=== PATIENT | male | born 1955 | race Caucasian/White ===

== ENCOUNTER → 2021-04-18 | Outpatient (CLI) | payer MEDICARE ==
[~2021-04-18] MED LIST: ALLP300T PO; AML5T PO; DICY20TA10 PO; DIVA250T4 PO; DNPZ10T; FLUTICASONE; GEMF600T3 PO; LISI20TA PO; LORA0.5T PO; OMEP20CA12 PO; POTA20TA15 PO; RANI300T4 PO; TRIA1TAB3 PO; WRF5T PO
--- NOTE | 2021-04-18 15:18 | Diagnostic Imaging Report ---
PROCEDURE: US Renal Bilateral. TECHNIQUE: Multiple real-time grayscale images were obtained over the kidneys in various projections bilaterally. INDICATION: Followup of the renal cyst on CT scan of 04/12/2021. FINDINGS: Right kidney measures 11.6 x 5.5 x 6.3 cm. There is a simple cyst off the lower pole measuring 4 x 4.4 x 3.7 cm. There is a nonobstructing stone in the inferior pole and superior pole. There is a 2nd simple cyst measuring 9 mm along the superior lateral aspect of the kidney. There is no hydronephrosis. The left kidney measures 10 x 5.9 x 4.4 cm. There is a simple cyst inferiorly measuring 8 x 5 mm. There is a septated cyst in the mid left kidney measuring 1 x 0.8 cm. No hydronephrosis. The bladder shows small volume of urine. The ureteral jets were not demonstrated. IMPRESSION: There are bilateral renal cysts present. There is a septation in the larger cyst on the left. This would be considered a Bosniak 2F cyst. Dictated by: Dictated on workstation # [id number]
== END ==
LOC: RAD 13:00
PROVIDERS: ATTEND Urology
DX: N28.1 Cyst of kidney, acquired (principal)
CPT/HCPCS: 76770

== ENCOUNTER → 2021-07-22 | Outpatient (CLI) | payer MEDICARE ==
--- NOTE | 2021-07-22 10:31 | Diagnostic Imaging Report ---
PROCEDURE: US Renal/Bladder. TECHNIQUE: Multiple real-time grayscale images were obtained over the kidneys in various projections bilaterally. INDICATION: Follow-up right renal cyst. COMPARISON: 04/18/2021. FINDINGS: Right: The right kidney measures 10.7 cm in length. Renal cortical thickness and echogenicity are within normal limits. A cyst is seen in the inferior pole of the right kidney measuring 4.4 x 3.3 x 2.5 cm. Previously this measured 4.4 x 4.0 x 3.7 cm. There is no evidence of calculi, solid focal mass or hydronephrosis. No perinephric fluid collections are identified. Left: The left kidney measures 9.7 cm in length. Renal cortical thickness and echogenicity are within normal limits. The previously visualized cortical cyst with thin septation is again seen measuring 0.8 x 1.0 x 0.9 cm. There is no evidence of calculi, solid focal mass or hydronephrosis. No perinephric fluid collections are identified. There is no abdominal ascites. Views of the pelvis demonstrate a mildly distended urinary bladder. Both ureteral jets are visualized. No large intraluminal filling defect or calculi are identified. IMPRESSION: 1. No acute renal abnormalities identified. 2. Stable size of the septated cyst within the mid left kidney measuring 1.0 cm in max diameter. Consider follow-up renal ultrasound in 12 months to ensure stability. 3. Interval decrease in size in the dominant cyst in the right kidney. No suspicious solid renal masses. Dictated by: Dictated on workstation # [id number]
== END ==
LOC: RAD 09:00
PROVIDERS: ATTEND Urology
DX: N28.1 Cyst of kidney, acquired (principal)
CPT/HCPCS: 76770

== ENCOUNTER 2021-09-14 19:30 | Observation (INO) | payer MEDICARE ==
[~2021-09-14] VITALS: Ht 182.8 cm; Wt 94.9 kg
[2021-09-14] VITALS (7 sets, daily range): BP systolic 139–152; BP diastolic 86–101
[2021-09-14] MEDS ORDERED: NITROGLYCERIN 0.4 MG SL TABS BTL 25'S SL PRN (20:00)
[2021-09-14] MEDS ORDERED: morphine INJ 4 MG/ML 1 ML (VIAL/SYRINGE) IV PRN (20:00)
[2021-09-14] MEDS ORDERED: PATIENT MAY USE OWN MEDS, ALL PO SCH (20:00)
--- NOTE | 2021-09-14 20:01 | Tele-ICU Progress Note ---
Subjective Date Seen by a Provider: Sep 14, 2021 Time Seen by a Provider: 19:40 Subjective/Events-last exam This virtual visit was conducted using real time audio/video. Thank you for asking us to see this patient for elev troponins/ NSTEMI. Transferred from OSH, no records in EMR PMH: Gout , HL SH: smoking history: never ROS: currently asymptomatic PE: No distress. VSS. 142/92 O2 sat 94% on RA HEENT: No obvious masses, adenopathy or JVD. Chest: clear to auscultation. CV: RRR S1 S2 No murmur or added sounds. Abd: Non-tender. Bowel sounds Y. : Unremarkable. Mccall N. CARDROOM HAND/psychiatric: Grossly intact. No obvious focal findings. Extremities: No edema. Capillary refill < 3 seconds. Skin: unremarkable. Results: none available. Available chart/ vitals / labs / images reviewed. Video assessment done using teleICU camera, rest of exam as per RN. A/P: NSTEMI Critical Care: critically ill patient. Cont. home meds as appropriate. left w list. Cardiology to see. Discussed with SUNDEEP Garces. Asked RN to reach out to eICU if any questions or conc erns later. Time spent with patient/coordination of care with other health professionals (mins): 21 Sepsis Event Evaluation Height, Weight, BMI Height: '" Weight: lbs. oz. kg; BMI Method:Stated Exam Exam Patient acknowledged, consented, and participated in this virtual visit which was conducted using real time audio/video Height & Weight Height: '" Weight: lbs. oz. kg; BMI Method:Stated General Appearance: No Apparent Distress Peripheral Pulses: 1+ Dorsalis Pedis (R), 1+ Left Dors-Pedis (L) (See free text) Assessment/Plan Assessment/Plan See free text. Critical Care: Critically Ill Patient HUSSEIN IBRAHIM MD Sep 14, 2021 20:01
[2021-09-15] VITALS (16 sets, daily range): BP systolic 124–167; BP diastolic 78–117
[2021-09-15 04:57] LABS: BASOPHILS % (AUTO) 1 % (0-10); EOSINOPHILS # (AUTO) 0.3 10^3/uL (0.0-0.3); EOSINOPHILS % (AUTO) 4 % (0-10); HEMATOCRIT 46 % (40-54); HEMOGLOBIN 15.6 g/dL (13.3-17.7); LYMPHOCYTES # (AUTO) 1.9 10^3/uL (1.0-4.0); LYMPHOCYTES % (AUTO) 23 % (12-44); MEAN CORPUSCULAR HEMOGLOBIN 31 pg (25-34); MEAN CORPUSCULAR HGB CONC 34 g/dL (32-36); MEAN CORPUSCULAR VOLUME 92 fL (80-99); MEAN PLATELET VOLUME 10.1 fL (9.0-12.2); MONOCYTES # (AUTO) 0.7 10^3/uL (0.0-1.0); MONOCYTES % (AUTO) 8 % (0-12); NEUTROPHILS # (AUTO) 5.1 10^3/uL (1.8-7.8); NEUTROPHILS % (AUTO) 64 % (42-75); PLATELET COUNT 178 10^3/uL (130-400)
[2021-09-15 05:13] LABS: POTASSIUM 3.3 MMOL/L (3.6-5.0)
[2021-09-15 05:15] LABS: CALCIUM 9.6 MG/DL (8.5-10.1)
[2021-09-15 05:19] LABS: CREATININE SERUM 1.16 MG/DL (0.60-1.30)
[2021-09-15] MEDS ORDERED: ASPIRIN 81 MG CHEW (CHILDREN'S ASA) ONE (05:23)
[2021-09-15] MEDS ORDERED: ASPIRIN 81 MG CHEW (CHILDREN'S ASA) PO ONE (05:30)
[2021-09-15] MEDS ORDERED: HEParin 1000 UNIT/ML (10ML VIAL) FOR BOLUS IV PRN (05:45)
[2021-09-15] MEDS ORDERED: HEParin DRIP 25000 UNIT/500ML 500 ML IV SCH (05:45)
[2021-09-15 05:57] LABS: PROTHROMBIN TIME PATIENT 13.9 SEC (12.2-14.7)
[2021-09-15] MEDS ORDERED: ASPIRIN E.C. 81 MG (ECOTRIN) TAB PO SCH (09:00)
--- NOTE | 2021-09-15 09:21 | Consultation-Cardiology ---
HPI-Cardiology Cardiology Consultation Date of Consultation 09/15/21 Date of Admission Time Seen by Provider: 19:40 HPI Patient is a 66 year old male with a history of hypertension, hyperlipidemia, type 2 diabetes mellitus who was admitted to via [facility] [place] ICU from [facility] emergency room for elevated troponins. Patient states that yesterday around 8:30 in the morning he was at work when he suddenly had shortness of breath, chest tightness, and diaphoresis. Patient got light headed and had to sit down. This episode lasted roughly 30 minutes. In the middle of the episode, patient decided to go the the ER. At the ER he was given nitroglycerin sublingual and aspirin 81mg. He states that this helped alleviate the chest tightness. He states he is still getting short of breath. Currently on 2L O2 nasal cannula. Patient states he has a history of anxiety with panic attacks and that when he begins to think about being short of breath he gets anxious which makes his shortness of breath worse. At [facility] ER his CXR was negative for acute findings. His BNP was within normal limits. Patient moved to the area around a year ago. 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 Patient has had a heart cath in the past, in 2017 or 2018. There was no intervention done at that time. Patient has no history of MS or CVA. He believes he has been told that he has a valvular defect, he is unsure. Home Medications & Allergies Allergies: Coded Allergies: Iodinated Contrast Media (Verified Allergy, Unknown, 07/11/07) Penicillins (Verified Allergy, Unknown, 07/11/07) Sulfa (Sulfonamide Antibiotics) (Verified Allergy, Unknown, 04/12/21) VDE-Dgzvgv-Lawoyr Hx Patient Social History Smoking Status: Never a Smoker Have you traveled recently?: No Alcohol Use?: No Immunizations Up To Date Date of Influenza Vaccine: Apr 01, 2021 Review of Systems-General Review of Systems Constitutional: diaphoresis EENTM: no symptoms reported Respiratory: dyspnea on exertion, short of breath Cardiovascular: No chest pain, No Hx of Intervention, No palpitations Psychiatric/Neurological: Anxiety Reviewed Test Results Reviewed Test Results Lab Laboratory Tests 09/14/21 20:15: Troponin I 0.084 09/15/21 05:35: Troponin I 0.081 Laboratory Tests Test 09/14/21 20:15 09/15/21 04:20 09/15/21 05:30 09/15/21 05:35 Range/Units Myoglobin 64.4 10.0-92.0 NG/ML Troponin I 0.084 H 0.081 H <0.028 NG/ML White Blood Count 8.0 4.3-11.0 10^3/uL Red Blood Count 4.99 4.30-5.52 10^6/uL Hemoglobin 15.6 13.3-17.7 g/dL Hematocrit 46 40-54 % Mean Corpuscular Volume 92 80-99 fL Mean Corpuscular Hemoglobin 31 25-34 pg Mean Corpuscular Hemoglobin Concent 34 32-36 g/dL Red Cell Distribution Width 12.8 10.0-14.5 % Platelet Count 178 130-400 10^3/uL Mean Platelet Volume 10.1 9.0-12.2 fL Immature Granulocyte % (Auto) 1 % Neutrophils (%) (Auto) 64 42-75 % Lymphocytes (%) (Auto) 23 12-44 % Monocytes (%) (Auto) 8 0-12 % Eosinophils (%) (Auto) 4 0-10 % Basophils (%) (Auto) 1 0-10 % Neutrophils # (Auto) 5.1 1.8-7.8 10^3/uL Lymphocytes # (Auto) 1.9 1.0-4.0 10^3/uL Monocytes # (Auto) 0.7 0.0-1.0 10^3/uL Eosinophils # (Auto) 0.3 0.0-0.3 10^3/uL Basophils # (Auto) 0.0 0.0-0.1 10^3/uL Immature Granulocyte # (Auto) 0.0 0.0-0.1 10^3/uL Sodium Level 140 135-145 MMOL/L Potassium Level 3.3 L 3.6-5.0 MMOL/L Chloride Level 103 98-107 MMOL/L Carbon Dioxide Level 21 21-32 MMOL/L Anion Gap 16 H 5-14 MMOL/L Blood Urea Nitrogen 22 H 7-18 MG/DL Creatinine 1.16 0.60-1.30 MG/DL Estimat Glomerular Filtration Rate 69 BUN/Creatinine Ratio 19 Glucose Level 150 H 70-105 MG/DL Calcium Level 9.6 8.5-10.1 MG/DL Triglycerides Level 215 H <150 MG/DL Cholesterol Level 124 < 200 MG/DL LDL Cholesterol Direct 61 1-129 MG/DL VLDL Cholesterol 43 H 5-40 MG/DL HDL Cholesterol 26 L 40-60 MG/DL Prothrombin Time 13.9 12.2-14.7 SEC INR Comment 1.0 0.8-1.4 Activated Partial Thromboplast Time 32 24-35 SEC Physical Exam Physical Exam Vital Signs Vital Signs - First Documented 09/14/21 09/14/21 09/14/21 19:49 20:00 22:00 Temp 36.4 Pulse 91 Resp 19 B/P (MAP) 150/96 (114) Pulse Ox 94 O2 Delivery Room Air O2 Flow Rate 2.00 Capillary Refill : Height, Weight, BMI Height: '" Weight: lbs. oz. kg; 28.39 BMI Method:Stated General Appearance: WD/WN, Anxious HEENT: PERRL/EOMI Neck: Normal Inspection, Supple Respiratory: Lungs Clear, No Accessory Muscle Use, Decreased Breath Sounds Cardiovascular: Regular Rate, Rhythm, No JVD, No Murmur, Normal Peripheral Pulses Gastrointestinal: Non Tender, Soft Rectal: Deferred Extremity: Normal Capillary Refill, Non Tender, No Calf Tenderness, No Pedal Edema Neurologic/Psychiatric: Alert, Oriented x3 Skin: Normal Color, Warm/Dry Comments ECHOCARDIOGRAM (09/15/2021): 1. This is a technically difficult study due to poor endocardial definition. 2. Left ventricle: The cavity size is normal. There is mild concentric hypertrophy. Systolic function is normal. The estimated ejection fraction is 55- 60%. Regional wall motion abnormalities cannot be excluded due to poor endocardial definition. Doppler parameters are consistent with abnormal left ventricular relaxation (grade 1 diastolic dysfunction). 3. Pulmonary arteries: The pulmonary artery pressure cannot be estimated on this study due to inadequate tricuspid regurgitant envelope. A/P-Cardiology Admission Diagnosis (1) Troponin level elevated Status: Acute Assessment & Plan: Ordered an Echocardiogram Given patient's symptoms, negative CXR, negative BNP, comorbidities, and elevated troponin will plan on a heart cath today to rule out/in MS. Results from previous EKG's, Echo's, and heart caths are unknown at this time, will attempt to contact patient's previous curtain supervisor. (2) Mixed hyperlipidemia Status: Chronic Assessment & Plan: Continue on home medications. (3) Primary hypertension Status: Chronic Assessment & Plan: Patient continued on home medications. Appears stable now. Continue to monitor. (4) Type 2 diabetes mellitus with complication Status: Chronic Assessment & Plan: Patient continued on home medication regimen, continue to monitor blood glucose, managed by medical team. Assessment/Plan The patient was seen and interviewed and examined by myself. 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 He had a pressure sensation in the center left side of his chest. He also felt somewhat lightheaded. He tried standing up and taking some deep breaths but this did not really help with his symptoms. Then he felt like he started to have a panic attack and his symptoms got worse. He became concerned and went to an outside emergency room. During his evaluation he had high-sensitivity troponin levels drawn which were elevated and he was sent to our hospital for further evaluation. While he was in the intensive care unit, he was treated with aspirin and sublingual nitroglycerin which seemed to relieve his symptoms somewhat but then he had low blood pressure and again had another panic attack. When I saw him this morning, he still felt like he had a slight knot in the left side of his chest. His breathing has improved. Troponin levels were also obtained here which were elevated. A cardiology consultation has been requested due to the elevated troponin levels. He states he had a cardiac catheterization in [place] in 2017 and was placed on metoprolol at that time but was not told about any significant blockage and he did not require any revascularization. He has occasional paroxysmal nocturnal dyspnea but denies orthopnea. He uses a CPAP at home. He denies syncope or lower extremity edema. S: General: Alert. No acute distress. Well nourished and appears stated age. Eye: Extraocular movements are intact. Conjunctivae are clear. There are no xanthelasma. HENT: Normocephalic. Atraumatic. Carotid pulsations 2/2 without bruits. Neck: Jugular venous pressure does not appear elevated. No thyromegaly appreciated. Respiratory: Lungs are clear to auscultation. Respirations are non-labored. Breath sounds are equal. Symmetrical chest wall expansion. Cardiovascular: Normal rate. Regular rhythm. No murmur. No gallop. Point of max imal impulse is not appear displaced. Good pulses equal in all extremities. No edema. Gastrointestinal: Soft. Normal bowel sounds. Skin: Skin turgor is normal. There is no pallor. Musculoskeletal: No kyphosis or scoliosis appreciated. Neurologic: Alert and oriented to person, place, time. Cranial nerves 3-12 appear grossly intact. The patient has good motor tone strength in the upper and lower extremities bilaterally. Psychiatric: Cooperative. He appears anxious. IMPRESSION: 1. Elevated troponin level. Unclear whether or not this could be consistent with a non-ST elevation myocardial infarction. His troponin levels in our insti tution were flat. His echocardiogram shows normal ejection fraction. There are no ischemic changes or signs of an old myocardial infarction on his electrocardiogram. However, despite being on intravenous heparin, he still has chest discomfort. In light of these findings, I recommend further evaluation with a cardiac catheterization. I have explained the benefits and risks of the procedure to the patient and he is in agreement to proceed. 2. Primary hypertension. Continue outpatient antihypertensive medication. 3. Mixed hyperlipidemia. Continue statin medication. 4. Type 2 diabetes mellitus with complications (cardiac). This is being managed by the hospitalist. Certain portions of this document may have been dictated utilizing voice recognition technology. Inherent to this technology, typographical and grammatical errors may exist. As much as I am diligent to identify and correct these mistakes, some errors may remain in the document. Supervisory-Addendum Brief Verification & Attestation Participated in pt care: history, MDM, physical Personally performed: exam, history, MDM Care discussed with: Medical Student Procedures: n/a Results interpretation: Verified all documentation Verification and Attestation of Medical Student E/M Service A medical student performed and documented this service in my presence. I reviewed and verified all information documented by the medical student and made modifications to such information, when appropriate. I personally performed the physical exam and medical decision making. Daniel Carlson JR, MD, Sep 15, 2021,11:31 FRANKO HENRY Sep 15, 2021 09:21 DANIEL CARLSON JR, MD Sep 15, 2021 10:22
[2021-09-15] MEDS ORDERED: NS IV 1000 ML 1,000 ML IV ONE (11:15)
[2021-09-15] MEDS ORDERED: CATHETER FLUSH 10 ML SYR IV PRN (11:15)
[2021-09-15] MEDS ORDERED: LIDOCAINE 1% INJ 50 ML (XYLOCAINE) VIAL ONE (11:30)
[2021-09-15] MEDS ORDERED: HEParin (CATH LAB) 2,000 ML IV ONE (11:31)
[2021-09-15] MEDS ORDERED: NS IV 1000 ML 1,000 ML ONE (11:31)
[2021-09-15] MEDS ORDERED: diphenhydrAMINE 50 MG/ML INJ (BENADRYL) ONE (11:35)
[2021-09-15] MEDS ORDERED: NITRO DRIP 25000 MCG/D5W 250 ML IV ONE (11:35)
[2021-09-15] MEDS ORDERED: MIDAZOLAM 5 MG/5 ML (VERSED) VIAL ONE (11:35)
[2021-09-15] MEDS ORDERED: HEParin 1000 UNIT/ML (10ML VIAL) FOR BOLUS ONE (11:35)
[2021-09-15] MEDS ORDERED: VERAPAMIL 5 MG/2 ML (CALAN) VIAL IV ONE (11:35)
[2021-09-15] MEDS ORDERED: fentaNYL INJ 100 MCG/2 ML AMP ONE (11:35)
[2021-09-15] MEDS ORDERED: FAMOTIDINE 20MG/2ML IV (PEPCID) ONE (11:35)
[2021-09-15] MEDS ORDERED: methylPREDNISolone 125 MG (Solu-MEDROL) VIAL ONE (11:39)
--- NOTE | 2021-09-15 12:10 | Pre-Op Note & Conscious Sedat ---
Pre-Operative Progress Note H&P Reviewed The H&P was reviewed, patient examined and no changes noted. Date H&P Reviewed: Sep 15, 2021 Time H&P Reviewed: 12:08 Pre-Op Diagnosis: Possible NSTEMI Conscious Sedation Pre-Proced ASA Score 2 For ASA 3 and 4: Consider anesthesia and medical clearance. Also, for patients with a history of failed moderate sedation consider anesthesia. Airway Lungs Heart ASA score ASA 1: a normal healthy patient ASA 2: a patient with a mild systemic disease (mid diabetes, controlled hypertension, obesity ASA 3: a patient with a severe systemic disease that limits activity (angina, COPD, prior Myocardial infarction) ASA 4: a patient with an incapacitating disease that is a constant threat to life (CHF, renal failure) ASA 5: a moribund patient not expected to survive 24 hrs. (ruptured aneurysm) ASA 6: a declared brain- patient whose organs are being harvested. For emergent operations, add the letter E after the classification Mallampati Classification Grade 2 Sedation Plan Analgesia, Amnesia, Plan communicated to team members, Discussed options with patient/fam, Discussed risks with patient/fam The patient is an appropriate candidate to undergo the planned procedure, sedation, and anesthesia. The patient immediately re-assessed prior to indication. GLENIS KAMARA JR, MD Sep 15, 2021 12:10
[2021-09-15] MEDS ORDERED: PANTOPRAZOLE 40 MG (PROTONIX) TAB PO NR (12:45)
[2021-09-15] MEDS ORDERED: NS IV 1000 ML 1,000 ML IV SCH (12:45)
[2021-09-15] MEDS ORDERED: PATIENT MAY USE OWN MEDS, ALL PO SCH (12:45)
[2021-09-15] MEDS ORDERED: ALLO100T PO (15:06)
[2021-09-15] MEDS ORDERED: PANT40TA52 PO (15:06)
[2021-09-15] MEDS ORDERED: AMLO-251 PO (15:06)
[2021-09-15] MEDS ORDERED: GLIP5TAB13 PO (15:06)
[2021-09-15] MEDS ORDERED: HYDR25TA4 PO (15:06)
[2021-09-15] MEDS ORDERED: ATOR40TA70 PO (15:06)
[2021-09-15] MEDS ORDERED: ACET-2267 PO (15:06)
[2021-09-15] MEDS ORDERED: LORA10TA7 PO (15:06)
[2021-09-15] MEDS ORDERED: LOSA50TA63 PO (15:06)
[2021-09-15] MEDS ORDERED: MTP25TSR PO (15:06)
[2021-09-15] MEDS ORDERED: ASPI-1238 PO (15:06)
[2021-09-15] MEDS ORDERED: GABA300C PO (15:06)
--- NOTE | 2021-09-15 15:29 | Short Stay Summary ---
HPI History of Present Illness: 66 yo M that presented to outside ER with chest pain. Patient states that he was checking a car tire when he became more short of breath and had a chest tightening . States that it had happened several times to him but this time the pain was worse. States that he had a previous cath in 2013 in [place] that was normal. Patient states that when he came into the ER the nitro and ASA helped the pain. He has a significant family history of SC as his father and grandfather both had fatal SC. This AM he states that the pain has resolved but he still has tightness in his chest. He is DM and controlled on Oral medications. Source: patient Exam Limitations: no limitations Date seen by provider: Sep 15, 2021 Time Seen by Provider: 10:15 Attending Physician Allie Perry MD PCP Shayne Escobar DO Consult Date of Admission Sep 14, 2021 at 19:30 Home Medications Home Medications Reviewed patient Home Medication Reconciliation performed by pharmacy medication reconciliations hazardous materials waste technician and/or nursing. Patients Allergies have been reviewed. Allergies Coded Allergies: Iodinated Contrast Media (Verified Allergy, Unknown, 07/11/07) Penicillins (Verified Allergy, Unknown, 07/11/07) Sulfa (Sulfonamide Antibiotics) (Verified Allergy, Unknown, 04/12/21) DAK-Caabyz-Alxjmd Hx Patient Social History Smoking Status: Never a Smoker Alcohol Use?: No Have you traveled recently?: No Immunizations Up To Date Influenza Vaccine Up-to-Date: Yes; Up-to-Date First/Initial COVID19 Vaccinat: OCTOBER 2020 Second COVID19 Vaccination Edmundo: DECEMBER 2020 Third COVID19 Vaccination Date: MAR 2021 Past Medical History NIDDM HTN HLD Family Medical History Significant Family History: Heart Disease Review of Systems (CHC) Constitutional: No chills, No fever, No malaise; weakness EENTM: no symptoms reported; No mouth pain, No nose congestion, No nose pain Respiratory: No cough; dyspnea on exertion; No orthopnea; short of breath Cardiovascular: chest pain; No edema, No palpitations Gastrointestinal: no symptoms reported; No abdominal pain, No constipation, No diarrhea, No nausea, No vomiting Genitourinary: no symptoms reported; No dysuria, No frequency, No hematuria Musculoskeletal: no symptoms reported; No back pain, No joint pain, No muscle pain Skin: no symptoms reported; No lesions, No rash Psychiatric/Neurological: Anxiety Reviewed Test Results Reviewed Test Results Lab Laboratory Tests Test 09/14/21 20:15 09/15/21 04:20 09/15/21 05:30 09/15/21 05:35 Range/Units Myoglobin 64.4 10.0-92.0 NG/ML Troponin I 0.084 H 0.081 H <0.028 NG/ML White Blood Count 8.0 4.3-11.0 10^3/uL Red Blood Count 4.99 4.30-5.52 10^6/uL Hemoglobin 15.6 13.3-17.7 g/dL Hematocrit 46 40-54 % Mean Corpuscular Volume 92 80-99 fL Mean Corpuscular Hemoglobin 31 25-34 pg Mean Corpuscular Hemoglobin Concent 34 32-36 g/dL Red Cell Distribution Width 12.8 10.0-14.5 % Platelet Count 178 130-400 10^3/uL Mean Platelet Volume 10.1 9.0-12.2 fL Immature Granulocyte % (Auto) 1 % Neutrophils (%) (Auto) 64 42-75 % Lymphocytes (%) (Auto) 23 12-44 % Monocytes (%) (Auto) 8 0-12 % Eosinophils (%) (Auto) 4 0-10 % Basophils (%) (Auto) 1 0-10 % Neutrophils # (Auto) 5.1 1.8-7.8 10^3/uL Lymphocytes # (Auto) 1.9 1.0-4.0 10^3/uL Monocytes # (Auto) 0.7 0.0-1.0 10^3/uL Eosinophils # (Auto) 0.3 0.0-0.3 10^3/uL Basophils # (Auto) 0.0 0.0-0.1 10^3/uL Immature Granulocyte # (Auto) 0.0 0.0-0.1 10^3/uL Sodium Level 140 135-145 MMOL/L Potassium Level 3.3 L 3.6-5.0 MMOL/L Chloride Level 103 98-107 MMOL/L Carbon Dioxide Level 21 21-32 MMOL/L Anion Gap 16 H 5-14 MMOL/L Blood Urea Nitrogen 22 H 7-18 MG/DL Creatinine 1.16 0.60-1.30 MG/DL Estimat Glomerular Filtration Rate 69 BUN/Creatinine Ratio 19 Glucose Level 150 H 70-105 MG/DL Calcium Level 9.6 8.5-10.1 MG/DL Triglycerides Level 215 H <150 MG/DL Cholesterol Level 124 < 200 MG/DL LDL Cholesterol Direct 61 1-129 MG/DL VLDL Cholesterol 43 H 5-40 MG/DL HDL Cholesterol 26 L 40-60 MG/DL Prothrombin Time 13.9 12.2-14.7 SEC INR Comment 1.0 0.8-1.4 Activated Partial Thromboplast Time 32 24-35 SEC Test 09/15/21 09:39 09/15/21 11:39 Range/Units Activated Partial Thromboplast Time 59 H 46 H 24-35 SEC D-Dimer 4.97 H 0.00-0.49 UG/ML Physical Exam-(CHC) Physical Exam Vital Signs VS - Last 72 Hours, by Label 09/14/21 09/14/21 09/14/21 09/14/21 19:49 20:00 20:15 20:30 Temp 36.4 Pulse 91 75 70 74 Resp 19 20 23 B/P (MAP) 150/96 (114) 152/88 (109) 144/101 (115) Pulse Ox 94 92 91 O2 Delivery Room Air Room Air Room Air 09/14/21 09/14/21 09/14/21 09/14/21 20:45 20:57 21:00 22:00 Pulse 71 67 67 Resp 18 24 24 B/P (MAP) 141/86 (104) 139/86 (103) 140/96 (111) Pulse Ox 90 94 92 90 O2 Delivery Room Air Room Air Room Air Nasal Cannula O2 Flow Rate 2.00 09/14/21 09/15/21 09/15/21 09/15/21 23:00 00:00 00:00 01:00 Pulse 65 68 61 Resp 20 27 14 B/P (MAP) 139/87 (104) 144/90 (108) 127/78 (94) Pulse Ox 92 94 93 O2 Delivery Nasal Cannula Nasal Cannula Nasal Cannula Nasal Cannula O2 Flow Rate 2.00 2.00 2.00 2.00 09/15/21 09/15/21 09/15/21 09/15/21 01:00 02:00 03:00 03:00 Pulse 61 58 63 Resp 18 21 B/P (MAP) 124/80 (95) 140/90 (107) Pulse Ox 93 93 O2 Delivery Nasal Cannula Nasal Cannula Nasal Cannula O2 Flow Rate 2.00 2.00 2.00 09/15/21 09/15/21 09/15/21 09/15/21 04:00 05:00 06:00 07:00 Pulse 63 76 69 56 Resp 21 19 25 B/P (MAP) 140/86 (104) 149/98 (115) 141/92 (108) Pulse Ox 91 94 94 O2 Delivery Nasal Cannula Nasal Cannula Nasal Cannula O2 Flow Rate 2.00 2.00 2.00 09/15/21 09/15/21 09/15/21 09/15/21 07:00 07:11 07:58 08:00 Temp 35.8 Pulse 60 71 Resp 19 51 B/P (MAP) 146/94 (111) 151/94 (113) Pulse Ox 96 97 O2 Delivery Nasal Cannula Nasal Cannula Nasal Cannula O2 Flow Rate 2.00 6.00 2.00 09/15/21 09/15/21 09/15/21 09/15/21 09:00 10:00 11:00 11:11 Pulse 66 59 63 Resp 43 19 14 B/P (MAP) 163/117 (132) 141/99 (113) 141/96 (111) Pulse Ox 95 95 97 O2 Delivery Nasal Cannula Nasal Cannula Nasal Cannula Nasal Cannula O2 Flow Rate 2.00 2.00 2.00 6.00 09/15/21 09/15/21 09/15/21 09/15/21 11:30 11:57 12:00 13:00 Temp 35.4 Pulse 64 49 Resp 29 25 22 B/P (MAP) 167/100 (122) 136/81 (99) Pulse Ox 94 95 94 O2 Delivery Nasal Cannula Nasal Cannula Nasal Cannula O2 Flow Rate 2.00 2.00 2.00 09/15/21 09/15/21 09/15/21 13:00 13:45 14:00 Pulse 54 54 Resp 25 B/P (MAP) 140/80 (100) Pulse Ox 95 O2 Delivery Nasal Cannula Nasal Cannula O2 Flow Rate 2.00 2.00 Capillary Refill : Less Than 3 Seconds General Appearance: WD/WN, no apparent distress, other (anxious appearing) HEENT: PERRL/EOMI Neck: non-tender, full range of motion, supple Respiratory: chest non-tender, lungs clear, normal breath sounds, no respiratory distress, no accessory muscle use Cardiovascular: normal peripheral pulses, regular rate, rhythm, no edema, no murmur Gastrointestinal: normal bowel sounds, non tender, soft, no organomegaly Back: no CVA tenderness Extremities: normal range of motion, non-tender, normal inspection, no pedal edema, no calf tenderness, normal capillary refill Neurologic/Psychiatric: electrical research engineer II-XII nml as tested, no motor/sensory deficits, alert, normal mood/affect, oriented x 3 Skin: normal color, warm/dry Lymphatic: no adenopathy Short Stay Diagnosis Discharge Diagnosis-Short Stay Admission Diagnosis See problem list Final Discharge Diagnosis See problem list Conclusion Plan See below Problem List (1) Troponin level elevated Assessment & Plan: Ordered an Echocardiogram Given patient's symptoms, negative CXR, negative BNP, comorbidities, and elevated troponin will plan on a heart cath today to rule out/in SC. Results from previous EKG's, Echo's, and heart caths are unknown at this time, will attempt to contact patient's previous crester. Status: Acute (2) Mixed hyperlipidemia Assessment & Plan: Continue on home medications. Status: Chronic (3) Primary hypertension Assessment & Plan: Patient continued on home medications. Appears stable now. Continue to monitor. Status: Chronic (4) Type 2 diabetes mellitus with complication Assessment & Plan: Patient continued on home medication regimen, continue to monitor blood glucose, managed by medical team. Status: Chronic Assessment/Plan Assessment/Plan Admission Status: Observation (1) Atypical chest pain Status: Acute Assessment & Plan: - Pain resolved this AM but still having tightness, Cardiol ogy consult, appreciate recommendations (2) Troponin level elevated Status: Acute Assessment & Plan: - Patient was taken to phlebotomist medical lab assistant and had a clean cath with normal EF (3) Primary hypertension Status: Chronic Assessment & Plan: - Continue home meds (4) Mixed hyperlipidemia Status: Chronic Assessment & Plan: - Continue high intensity statin (5) Type 2 diabetes mellitus with complication Status: Chronic Assessment & Plan: - Continue home meds ALLIE PERRY MD Sep 15, 2021 15:29
--- NOTE | 2021-09-15 15:35 | Discharge Summary ---
Discharge [facility] Reconcile Patient Problems Problems Reviewed?: Yes Discharge Medications New, Converted or Re-Newed RX: Transmitted to Pharmacy Continued Medications: Acetaminophen (Tylenol Extra Strength) 500 Mg Tablet 1000 MG PO Q8H PRN for PAIN-MILD (1-4), TAB Allopurinol (Allopurinol) 100 Mg Tablet 100 MG PO DAILY, TAB Amlodipine Besylate (Amlodipine Besylate) 10 Mg Tablet 10 MG PO DAILY, TAB Aspirin (Aspirin EC) 81 Mg Tablet.dr 81 MG PO HS, TAB Atorvastatin Calcium (Atorvastatin Calcium) 40 Mg Tablet 40 MG PO HS, TAB Gabapentin (Neurontin) 300 Mg Capsule 300 MG PO HS, CAP Glipizide (Glipizide) 5 Mg Tablet 5 MG PO BIDAC, TAB Hydrochlorothiazide (Hydrochlorothiazide) 25 Mg Tablet 25 MG PO DAILY, TAB Loratadine (Loratadine) 10 Mg Tablet 10 MG PO DAILY PRN for ALLERGY SYMPTOMS, TAB Losartan Potassium (Losartan Potassium) 50 Mg Tablet 50 MG PO 1800 AFTER MEAL, TAB Metoprolol Succinate (Metoprolol Succinate) 25 Mg Tab.er.24h 25 MG PO DAILY, TAB Pantoprazole Sodium (Pantoprazole Sodium) 40 Mg Tablet.dr 40 MG PO DAILY, TAB Patient Instructions Goal/Follow Up Appt: F.u with PCP 1-2 weeks Activity & Diet Discharge Diet: Cardiac Diet Activity as Tolerated: Yes ALLIE ROMAN MD Sep 15, 2021 15:35
[2021-09-15] MEDS ORDERED: HYDR-3584 PO (16:17)
--- NOTE | 2021-09-15 19:00 | Cardiac Cath Report ---
CARDIAC CATHETERIZATION DATE OF PROCEDURE: 09/15/2021 INDICATION: Abnormal troponin level. HISTORY: The patient is a 66 year old male with no known history of coronary artery disease who presented to the hospital with chest pain and dyspnea. He was found to have an elevated troponin level. Despite receiving aspirin, intravenous heparin, and nitrates, he has continued to have persistent chest discomfort. As such, he is now referred for further evaluation with a cardiac catheterization. PROCEDURES PERFORMED: 1. Left heart catheterization with hemodynamic measurements. 2. Diagnostic upper sioux coronary angiography. PROCEDURE DESCRIPTION: After informed consent and in the fasting state, left heart catheterization was performed through the right radial artery utilizing a 6 Wallisian system by percutaneous approach. Standard 5 Wallisian Mitul catheters were utilized for the diagnostic portion of the procedure. All catheters were exchanged over a guidewire. RESULTS: HEMODYNAMICS: The aortic pressure was 130/75 mmHg. The left ventricular pressure was 127/0 mmHg with a left ventricular end-diastolic pressure of 9 mmHg. There was no significant pressure gradient upon pullback across aortic valve. CORONARY ANGIOGRAPHY: Left main coronary artery: Free of significant disease. Left anterior descending coronary artery: Free of significant disease. Left circumflex coronary artery: Free of significant disease. Right coronary artery: Dominant and free of significant disease. IMPRESSION: 1. Normal left heart pressures. 2. Angiographically normal-appearing coronary arteries in a right dominant system. 3. The patient is known to have normal left ventricular systolic function with an estimated ejection fraction of 55-60% by echocardiogram obtained earlier today. 4. The patient most likely had noncardiac elevation of the troponin level of unclear etiology, possibly due to chronic kidney disease. 5. Alternative etiologies of noncardiac chest pain should be evaluated. Certain portions of this document may have been dictated utilizing voice recognition technology. Inherent to this technology, typographical and grammatical errors may exist. As much as I am diligent to identify and correct these mistakes, some errors may remain in the document. GLENIS KAMARA JR, MD Sep 15, 2021 19:00
[2021-09-16] MEDS ORDERED: PANTOPRAZOLE 40 MG (PROTONIX) TAB PO SCH (09:00)
== END 2021-09-15 17:26 | disposition home or self-care (01) ==
LOC: ICU 19:30
PROVIDERS: ADMIT Family Medicine; ATTEND Family Medicine
DX: R79.89 Other specified abnormal findings of blood chemistry (principal); R07.89 Other chest pain; E11.8 Type 2 diabetes mellitus with unspecified complications; I10 Essential (primary) hypertension; E78.2 Mixed hyperlipidemia; Z79.84 Long term (current) use of oral hypoglycemic drugs; Z99.81 Dependence on supplemental oxygen
CPT/HCPCS: 80048; 80061; 83874; 84484 ×2; 85025; 85379; 85610; 85730; 87081; 93005 ×2; 93306; 93458; C1894; G0378; G0379; 36415

== ENCOUNTER → 2021-10-31 | Outpatient (CLI) | payer MEDICARE ==
[~2021-10-31] MED LIST changes: +ACET-2267 PO; +ALLO100T PO; +AMLO-251 PO; +ASPI-1238 PO; +ATOR40TA70 PO; +GABA300C PO; +GLIP5TAB13 PO; +HYDR-3584 PO; +HYDR25TA4 PO; +LORA10TA7 PO; +LOSA50TA63 PO; +MTP25TSR PO; +PANT40TA52 PO; +RT-ALBUTEROL SULF 2.5 MG/3 ML PRE-MIX VIAL INH ONE
== END ==
LOC: RT 13:00
PROVIDERS: ATTEND Nurse Practitioner Family
DX: R06.02 Shortness of breath (principal)
CPT/HCPCS: 94060; 94726; 94729

== ENCOUNTER 2023-04-13 05:28 | Outpatient (CLI) | payer MEDICARE ==
[~2023-04-13] VITALS: Ht 182.9 cm; Wt 96.8 kg
[~2023-04-13 05:28] MED LIST changes: -RT-ALBUTEROL SULF 2.5 MG/3 ML PRE-MIX VIAL INH ONE
[2023-04-13] MEDS ORDERED: BUDE10.2 IH (10:27)
[2023-04-13] MEDS ORDERED: METO50TA7 PO (10:27)
[2023-04-13] MEDS ORDERED: LOSA100T58 PO (10:27)
[2023-04-13] MEDS ORDERED: TIOT18CA2 IH (10:27)
[2023-04-13] MEDS ORDERED: SEMA0.258 SQ (10:27)
[2023-04-13] MEDS ORDERED: CLIN150C20 PO (10:36)
== END 2023-04-13 10:37 | disposition home or self-care (01) ==
LOC: PREOP 05:28
PROVIDERS: ATTEND Specialist
DX: Z01.818 Encounter for other preprocedural examination (principal)

== ENCOUNTER 2023-04-20 05:57 | Day surgery (SDC) | payer MEDICARE ==
[~2023-04-20] VITALS: Ht 182.9 cm; Wt 96.8 kg
[~2023-04-20 05:57] MED LIST changes: +BUDE10.2 IH; +CLIN150C20 PO; +LOSA100T58 PO; +METO50TA7 PO; +SEMA0.258 SQ; +TIOT18CA2 IH
[2023-04-20] MEDS ORDERED: MOXIFLOXACIN OPHTH SOLN 5 MG/ML 0.5 ML SYRINGE OP ONE (06:15)
[2023-04-20] MEDS ORDERED: POVIDONE IODINE OPHTH SOLN 5% 30 ML OP ONE (06:15)
[2023-04-20] MEDS ORDERED: TIMOLOL 0.5% (CATARACTS) 0.3 ML BTL OU PRN (06:15)
[2023-04-20] MEDS ORDERED: LIDOCAINE PF 1% 2 ML VIAL IR PRN (06:15)
[2023-04-20] MEDS: TETRACAINE 0.5% OPHTH SOLN 4 ML BTL (SINGLE DOSE ONLY) OU PRN ×4 (06:19→06:31)
[2023-04-20 06:20] VITALS: BP 123/83
[2023-04-20] MEDS: PHENYLEPHRINE 10% OPHTH SOLN 5 ML BTL OU SCH ×3 (06:24→06:32)
[2023-04-20] MEDS: TROPICAMIDE 1% OPH SOLN (MYDRIACYL) 15 ML BTL OP SCH ×3 (06:24→06:32)
[2023-04-20] MEDS ORDERED: MIDAZOLAM INJ 2 MG/2 ML VIAL ONE (07:14)
--- NOTE | 2023-04-20 07:28 | Ophthalmologist Pre-Op Note ---
Pre-Operative Progress Note H&P Reviewed The H&P was reviewed, patient examined and no changes noted. Date H&P Reviewed: Apr 20, 2023 Time H&P Reviewed: 07:28 Pre-Op Dx Cataract, Right Eye ABEBE SIN MD Apr 20, 2023 07:28
--- NOTE | 2023-04-20 07:47 | Ophthalmology Operative Report ---
Cataract removal/placement IOL PREOPERATIVE DIAGNOSIS: Cataract Right Eye POSTOPERATIVE DIAGNOSIS: Cataract Right Eye PROCEDURE: Cataract removal and placement of posterior chamber implant, right eye SURGEON: Moose Sin ANESTHESIA: Topical with sedation COMPLICATIONS: None ESTIMATED BLOOD LOSS: Minimal DESCRIPTION OF PROCEDURE: After proper informed consent was obtained, the patient, a 68 male, was taken to the Operating Room and the right eye was anesthetized with tetracaine. The right eye was then prepped and draped in the usual manner. A wire lid speculum was placed. A paracentesis was made at the left hand position. Preservative free lidocaine was injected into the anterior chamber followed by viscoelastic. A clear corneal incision was made in the temporal position. A capsulorrhexis was preformed and the central nuclear and cortical material were removed. The posterior capsule was polished and Hugo 19.5 CNA0T0 IOL was placed into the capsular bag. The residual viscoelastic was aspirated and balanced saline solution was injected into the anterior chamber. Moxifloxacin was injected into the anterior chamber. The wound was checked and found to be water tight. The patient tolerated the procedure well without complications. MOOSE SIN MD Apr 20, 2023 07:47
[2023-04-20 07:55] VITALS: BP 130/87
--- NOTE | 2023-04-20 12:09 | Anesthesia-General Post-Op ---
MAC Patient Condition Mental Status/LOC: Same as Preop Cardiovascular: Satisfactory Nausea/Vomiting: Absent Respiratory: Satisfactory Pain: Controlled Complications: Absent Post Op Complications Complications None Follow Up Care/Instructions Patient Instructions None needed. Anesthesiology Discharge Order Discharge Order Patient is doing well, no complaints, stable vital signs, no apparent adverse anesthesia problems. No complications reported per nursing. NAVDEEP ARIAS CRNA Apr 20, 2023 12:09
== END 2023-04-20 07:57 | disposition home or self-care (01) ==
LOC: SDC 05:57
PROVIDERS: ATTEND Specialist
DX: E11.36 Type 2 diabetes mellitus with diabetic cataract (principal); H25.9 Unspecified age-related cataract; Z85.828 Personal history of other malignant neoplasm of skin; G47.33 Obstructive sleep apnea (adult) (pediatric); Z79.84 Long term (current) use of oral hypoglycemic drugs; Z79.85 Long-term (current) use of injectable non-insulin antidiabetic drugs
CPT/HCPCS: 66984; V2632

== ENCOUNTER 2023-04-26 07:59 | Outpatient (CLI) | payer MEDICARE ==
[~2023-04-26] VITALS: Ht 183 cm; Wt 96.8 kg
[2023-04-26] MEDS ORDERED: EMPA25TA PO (10:12)
== END 2023-04-26 14:19 | disposition home or self-care (01) ==
LOC: PREOP 07:59
PROVIDERS: ATTEND Specialist
DX: Z01.818 Encounter for other preprocedural examination (principal)

== ENCOUNTER 2023-05-04 06:08 | Day surgery (SDC) | payer MEDICARE ==
[~2023-05-04] VITALS: Ht 183 cm; Wt 96.8 kg
[~2023-05-04 06:08] MED LIST changes: +EMPA25TA PO; -GLIP5TAB13 PO; +GLIP5TAB23 PO
[2023-05-04] MEDS: TETRACAINE 0.5% OPHTH SOLN 4 ML BTL (SINGLE DOSE ONLY) OU PRN ×4 (06:20→06:39)
[2023-05-04] MEDS: TROPICAMIDE 1% OPH SOLN (MYDRIACYL) 15 ML BTL OP SCH ×3 (06:27→06:39)
[2023-05-04] MEDS: PHENYLEPHRINE 10% OPHTH SOLN 5 ML BTL OU SCH ×3 (06:27→06:39)
[2023-05-04 06:28] VITALS: BP 122/72
[2023-05-04] MEDS ORDERED: TIMOLOL 0.5% (CATARACTS) 0.3 ML BTL OU PRN (06:30)
[2023-05-04] MEDS ORDERED: POVIDONE IODINE OPHTH SOLN 5% 30 ML OP ONE (06:30)
[2023-05-04] MEDS ORDERED: MOXIFLOXACIN OPHTH SOLN 5 MG/ML 0.5 ML SYRINGE OP ONE (06:30)
[2023-05-04] MEDS ORDERED: LIDOCAINE PF 1% 2 ML VIAL IR PRN (06:30)
[2023-05-04] MEDS ORDERED: MIDAZOLAM INJ 2 MG/2 ML VIAL ONE (07:21)
--- NOTE | 2023-05-04 07:36 | Ophthalmologist Pre-Op Note ---
Pre-Operative Progress Note H&P Reviewed The H&P was reviewed, patient examined and no changes noted. Date H&P Reviewed: May 04, 2023 Time H&P Reviewed: 07:18 Pre-Op Dx Cataract, Left Eye ABEBE SIN MD May 04, 2023 07:36
--- NOTE | 2023-05-04 07:37 | Ophthalmology Operative Report ---
Cataract removal/placement IOL PREOPERATIVE DIAGNOSIS: Cataract Left Eye POSTOPERATIVE DIAGNOSIS: Cataract Left Eye PROCEDURE: Cataract removal and placement of posterior chamber implant, left eye SURGEON: Moose Sin ANESTHESIA: Topical with sedation COMPLICATIONS: None ESTIMATED BLOOD LOSS: Minimal DESCRIPTION OF PROCEDURE: After proper informed consent was obtained, the patient, a 68 male, was taken to the Operating Room and the left eye was anesthetized with tetracaine. The left eye was then prepped and draped in the usual manner. A wire lid speculum was placed. A paracentesis was made at the left hand position. Preservative free lidocaine was injected into the anterior chamber followed by viscoelastic. A clear corneal incision was made in the temporal position. A capsulorrhexis was preformed and the central nuclear and cortical material were removed. The posterior capsule was polished and an Hugo 21.0 CNA0T0 was placed into the capsular bag. The residual viscoelastic was aspirated and balanced saline solution was injected into the anterior chamber. Moxifloxacin was injected into the anterior chamber. The wound was checked and found to be water tight. The patient tolerated the procedure well without complications. MOOSE SIN MD May 04, 2023 07:37
[2023-05-04 07:46] VITALS: BP 124/80
--- NOTE | 2023-05-04 12:42 | Anesthesia-General Post-Op ---
MAC Patient Condition Mental Status/LOC: Same as Preop Cardiovascular: Satisfactory Nausea/Vomiting: Absent Respiratory: Satisfactory Pain: Controlled Complications: Absent Post Op Complications Complications None Follow Up Care/Instructions Patient Instructions None needed. Anesthesiology Discharge Order Discharge Order Patient is doing well, no complaints, stable vital signs, no apparent adverse anesthesia problems. No complications reported per nursing. YVONNE WANG CRNA May 04, 2023 12:42
== END 2023-05-04 07:47 | disposition home or self-care (01) ==
LOC: SDC 06:08
PROVIDERS: ATTEND Specialist
DX: E11.36 Type 2 diabetes mellitus with diabetic cataract (principal); H26.9 Unspecified cataract; G47.33 Obstructive sleep apnea (adult) (pediatric); Z85.828 Personal history of other malignant neoplasm of skin; Z79.84 Long term (current) use of oral hypoglycemic drugs; Z79.85 Long-term (current) use of injectable non-insulin antidiabetic drugs
CPT/HCPCS: 66984; V2632